=== PATIENT | female | born 1975 | race African-American/Black ===

== ENCOUNTER 2021-05-18 14:39 | Inpatient (IN) | payer OTHER ==
[~2021-05-18] VITALS: Ht 162.6 cm; Wt 78.3 kg
[2021-05-18 15:13] LABS: BASOPHILS % (AUTO) 1 % (0-1); EOSINOPHILS % (AUTO) 0 % (1-7); LYMPHOCYTES % (AUTO) 10 % (22-44); MEAN CORPUSCULAR HEMOGLOBIN 30.2 pg (27.0-34.8); MEAN CORPUSCULAR HGB CONC 34.8 g/dL (32.4-35.8); MONOCYTES % (AUTO) 2 % (2-9); NEUTROPHILS % (AUTO) 88 % (42-75); PLATELET COUNT 469 x10^3/uL (130-400); RED BLOOD COUNT 4.91 x10^6/uL (3.82-5.3); RED CELL DISTRIBUTION WIDTH 13.2 % (9.6-15.2)
[2021-05-18] MEDS ORDERED: HYDR25TA6 PO (15:14)
--- NOTE | 2021-05-18 15:14 | NUR ---
PT HERE FOR C/O HIGH BLOOD PRESSURE, CURRENTLY TAKING HCTZ.
[2021-05-18] MEDS ORDERED: PRED20TA PO (15:18)
[2021-05-18] MEDS ORDERED: AZIT250T PO (15:18)
[2021-05-18] MEDS ORDERED: FLUT1BLS INH (15:18)
[2021-05-18] MEDS ORDERED: IPRA3AMP30 NEB (15:18)
[2021-05-18] MEDS ORDERED: ALBU18HF PO (15:18)
[2021-05-18] MEDS ORDERED: NORG1TAB6 PO (15:18)
[2021-05-18 15:19] LABS: ALANINE AMINOTRANSFERASE 47 U/L (12-78); ALBUMIN 4.4 g/dL (3.4-5.0); ANION GAP 9 mmol/L (5-15); CHLORIDE 89 mmol/L (98-107)
[2021-05-18 15:24] LABS: ALKALINE PHOSPHATASE 51 U/L (45-117); BILIRUBIN,TOTAL 0.5 mg/dL (0.2-1.0); TOTAL PROTEIN 8.8 g/dL (6.4-8.2); TROPONIN I < 0.015 ng/mL (0.000-0.045)
[2021-05-18] MEDS ORDERED: ACETAMINOPHEN 500 MG TABLET PO ONE (16:00)
[2021-05-18] MEDS ORDERED: SODIUM CHLORIDE 0.9% 1,000 ML IV ONE (16:00)
[2021-05-18] MEDS ORDERED: ACETAMINOPHEN 500 MG TABLET ONE (16:22)
[2021-05-18] MEDS ORDERED: LORazepam 1MG TABLET PO PRN (17:30)
[2021-05-18] MEDS ORDERED: PROMETHAZINE 25 MG/ML, 1ML IM PRN (17:30)
[2021-05-18] MEDS ORDERED: ALBUTEROL/IPRATROPIUM 2.5MG/0.5MG, 3 ML NEB PRN (17:30)
[2021-05-18] MEDS: SODIUM CHLORIDE 0.9% 1,000 ML IV SCH (17:30)
[2021-05-18] MEDS ORDERED: GUAIFENESIN/DM 200-20MG, 10ML UDC PO PRN (17:30)
[2021-05-18] MEDS ORDERED: ACETAMINOPHEN 325 MG TABLET PO PRN (17:30)
[2021-05-18] MEDS ORDERED: LABETALOL 5MG/ML, 20ML IVPush PRN (17:30)
[2021-05-18] MEDS ORDERED: DOCUSATE 100 MG CAPSULE PO PRN (17:30)
[2021-05-18] MEDS ORDERED: ONDANSETRON 2MG/ML, 2ML IVPush PRN (17:30)
[2021-05-18] MEDS ORDERED: ENALAPRILAT 1.25 MG/ML, 2ML IVPush PRN (17:30)
[2021-05-18] MEDS ORDERED: ONDANSETRON ODT 4 MG PO PRN (17:30)
--- NOTE | 2021-05-18 17:40 | NUR ---
PT AMBULATED TO RESTROOM.
[2021-05-18 18:04] LABS: TROPONIN I < 0.015 ng/mL (0.000-0.045)
[2021-05-18 18:29] VITALS: BP 160/101
[2021-05-18] MEDS: ENOXAPARIN 40 MG/0.4 ML SQ SCH (18:32)
[2021-05-18] MEDS ORDERED: ENALAPRILAT 1.25 MG/ML, 1ML ONE (18:37)
[2021-05-18 20:14] VITALS: BP 145/92
[2021-05-18] MEDS ORDERED: ALBUTEROL HFA 90 MCG/SPRAY INH SCH (21:00)
[2021-05-18] MEDS: FAMOTIDINE 20 MG/2 ML IVPush SCH (21:17)
[2021-05-18] MEDS ORDERED: ALBUTEROL SULFATE 2.5 MG/3 ML NPPB PRN (22:00)
[2021-05-18] MEDS: GUAIFENESIN/DM 200-20MG, 10ML UDC PO SCH (22:00)
[2021-05-18] MEDS: MELATONIN 5 MG TABLET PO PRN (23:09)
[2021-05-18] MEDS: KETOROLAC 30 MG/1 ML IV PRN (23:09)
[2021-05-18 23:50] LABS: TROPONIN I < 0.015 ng/mL (0.000-0.045)
[2021-05-19] MEDS: SODIUM CHLORIDE 0.9% 1,000 ML IV SCH ×2 (01:38→12:34)
[2021-05-19 01:47] VITALS: BP 138/86
[2021-05-19 02:05] LABS: MICROSCOPIC INDICATED
[2021-05-19] MEDS: GUAIFENESIN/DM 200-20MG, 10ML UDC PO SCH ×4 (04:00→20:51)
[2021-05-19 04:32] LABS: ANION GAP 6 mmol/L (5-15); CALCIUM 8.8 mg/dL (8.5-10.1); CHLORIDE 95 mmol/L (98-107); CREATININE 0.99 mg/dL (0.55-1.02)
[2021-05-19] MEDS ORDERED: LABETALOL 5MG/ML, 20ML IVPush PRN (07:00)
[2021-05-19] MEDS: BUDESONIDE 0.5 MG/2 ML INHA INH SCH ×2 (07:13→21:00)
[2021-05-19] MEDS ORDERED: ENALAPRIL 10 MG TABLET ONE (08:17)
[2021-05-19 08:27] VITALS: BP 160/104
[2021-05-19] MEDS: METOPROLOL TARTRATE 25 MG TAB PO SCH ×2 (08:29→17:43)
[2021-05-19] MEDS: AZITHROMYCIN 250 MG TABLET PO SCH (08:29)
[2021-05-19] MEDS: NORGESTIMATE-ETHINYL ESTRADIOL TABLET PO SCH (08:30)
[2021-05-19] MEDS: SENNA/DOCUSATE TABLET PO SCH (08:30)
[2021-05-19] MEDS: FAMOTIDINE 20 MG/2 ML IVPush SCH ×2 (08:30→20:52)
[2021-05-19] MEDS ORDERED: ENALAPRIL 5MG TABLET PO SCH (09:00)
[2021-05-19] MEDS ORDERED: FLUTICASONE/VILANTEROL 200-25MCG/INH INH SCH (09:00)
[2021-05-19 12:38] VITALS: BP 146/87
[2021-05-19 17:44] VITALS: BP 146/89
[2021-05-19] MEDS: ENOXAPARIN 40 MG/0.4 ML SQ SCH (17:44)
[2021-05-19 20:04] VITALS: BP 136/86
[2021-05-19] MEDS: MELATONIN 5 MG TABLET PO PRN (20:52)
[2021-05-19] MEDS: KETOROLAC 30 MG/1 ML IV PRN (21:53)
[2021-05-19] MEDS ORDERED: ALBUTEROL HFA 90 MCG/SPRAY INH PRN (23:00)
[2021-05-20 01:02] VITALS: BP 138/85
[2021-05-20] MEDS: SODIUM CHLORIDE 0.9% 1,000 ML IV SCH (01:37)
[2021-05-20 05:14] LABS: ANION GAP 8 mmol/L (5-15); CALCIUM 8.1 mg/dL (8.5-10.1); CHLORIDE 107 mmol/L (98-107)
[2021-05-20 05:15] LABS: CREATININE 0.75 mg/dL (0.55-1.02)
[2021-05-20] MEDS: GUAIFENESIN/DM 200-20MG, 10ML UDC PO SCH ×2 (05:42→09:07)
[2021-05-20] MEDS: METOPROLOL TARTRATE 25 MG TAB PO SCH (05:42)
[2021-05-20 07:02] VITALS: BP 159/99
[2021-05-20] MEDS ORDERED: ENAL10TA71 PO ×2 (07:26)
[2021-05-20] MEDS ORDERED: METO25TA35 PO (07:28)
[2021-05-20] MEDS ORDERED: ENAL10TA9 PO (07:28)
[2021-05-20] MEDS ORDERED: FLUTICASONE FUROATE 200MCG/INH INH SCH (09:00)
[2021-05-20] MEDS: NORGESTIMATE-ETHINYL ESTRADIOL TABLET PO SCH (09:00)
[2021-05-20] MEDS ORDERED: ENALAPRIL 10 MG TABLET PO SCH (09:00)
[2021-05-20] MEDS: SENNA/DOCUSATE TABLET PO SCH (09:06)
[2021-05-20] MEDS: AZITHROMYCIN 250 MG TABLET PO SCH (09:06)
[2021-05-20] MEDS: FAMOTIDINE 20 MG/2 ML IVPush SCH (09:07)
== END 2021-05-20 11:11 | disposition home or self-care (01) | DRG 305 ==
LOC: SUATTDRO 16:47 → ED 16:50 → EDIP 16:51 → ED 17:14 → 4WST 17:49
PROVIDERS: ADMIT Hospitalist; ATTEND Hospitalist
DX: I16.0 Hypertensive urgency (principal); J45.901 Unspecified asthma with (acute) exacerbation; E87.1 Hypo-osmolality and hyponatremia; E86.0 Dehydration; E87.8 Other disorders of electrolyte and fluid balance, not elsewhere classified; G43.909 Migraine, unspecified, not intractable, without status migrainosus; I10 Essential (primary) hypertension; Z68.29 Body mass index [BMI] 29.0-29.9, adult; Z82.3 Family history of stroke; Z82.49 Family history of ischemic heart disease and other diseases of the circulatory system
CPT/HCPCS: 36415; 96360; 96361; 96372; 99285; J7626; 70450; 71045; 80048; 80053; 81001; 83735; 83880; 84443; 84484; 84703; 85025; 93005; 94640; G0378; J1650; J1885; J7030; J7512